=== PATIENT | female | born 1960 | race Caucasian/White ===

== ENCOUNTER 2016-12-23 08:44 | Day surgery (SDC) | payer OTHER, MEDICAID ==
--- NOTE | 2016-12-22 15:11 | HISTORY AND PHYSICAL E ---
History and Physical NAME: ANIBAL RAMIREZ : 1960 AGE: 56Y ADMITTED: 12/23/2016 ROOM: CHIEF COMPLAINT: 1. Hemorrhoid. 2. Blood in the stool. HISTORY: Patient presented for colon exam. Planned colonoscopy. Upper scope, 2008, shows no ulcers, esophagitis, gastritis, duodenitis. Colon was done in 2008 showing diverticulosis, polyps (rectum), and hemorrhoids. Now, she is for colon exam. REVIEW OF SYSTEMS: SOCIAL HISTORY: Smokes half pack daily. SURGICAL HISTORY: 1. Hysterectomy. 2. Back surgery. PHYSICAL EXAMINATION: VITAL SIGNS: Blood pressure 120/80, pulse 80, respirations 18. Temperature is 98. HEAD, EYES, EARS, NOSE, THROAT: Normal. NECK: Is supple. LUNGS: Are clear. ABDOMEN: Soft. NEUROLOGIC: Exam negative. MEDICATIONS: She takes: 1. Premarin. 2. Methadone. 3. Fentanyl patches. CONCLUSION: 1. POLYPS. 2. HEMORRHOIDS. 3. RECTAL BLEEDING. 4. HISTORY OF RECTAL POLYPS. PLAN: Colonoscopy, scheduled for 12/23/2016. DICTATING PHYSICIAN: DONATO CADE M.D. [id number] PHY#: [id number] ID: [id number] JOB#: [id number] ACCT: [id number] cc:DONATO CADE M.D. >
[~2016-12-23 08:44] MED LIST: EPINEPHRINE INJ 1 MG/10 ML DISP.SYRIN ONE; FLUMAZENIL INJ 0.5 MG/5 ML VIAL IV ONE; GLUCAGON,HUMAN RECOMB 1 MG INJ ONE; GLYCOPYRROLATE INJ 0.4 MG/2 ML VIAL ONE; LIDOCAINE 2% JELLY 30 ML TUBE ONE; NALOXONE HCL INJ/PF 0.4 MG/1 ML SDV ONE; ONDANSETRON HCL INJ/PF 4 MG/2 ML SDV ONE
[2016-12-23] MEDS: MIDAZOLAM 2 MG/2 ML INJ ONE ×2 (09:05→09:13)
[2016-12-23] MEDS: FENTANYL CITRATE INJ/PF 100 MCG/2 ML AMPUL ONE ×2 (09:07→09:15)
[2016-12-23 10:22] VITALS: BP 100/61
[2016-12-23 10:44] LABS: ABSOLUTE EOSINOPHILS # (AUTO) 0.1 10^3/uL (0.0-0.6); ABSOLUTE LYMPHOCYTES (AUTO) 3.2 10^3/uL (0.5-4.7); ABSOLUTE MONOCYTES (AUTO) 0.7 10^3/uL (0.1-1.4); ABSOLUTE NEUT (AUTO) 6.6 10^3/uL (1.7-8.2); BASOPHILS % (AUTO) 0.4 % (0-2); EOSINOPHILS % (AUTO) 0.9 % (0-6); HEMATOCRIT 39.8 % (36.0-47.0); HEMOGLOBIN 13.8 g/dL (12.0-15.5); HGB HCT DIFFERENCE 1.6; LYMPHOCYTES % (AUTO) 30.2 % (13-45); MEAN CORPUSCULAR HEMOGLOBIN 33.8 pg (27.0-33.4); MEAN CORPUSCULAR HGB CONC 34.6 g/dL (32.0-36.0); MEAN CORPUSCULAR VOLUME 98 fl (80-97); MONOCYTES % (AUTO) 6.7 % (3-13); RED BLOOD COUNT 4.08 10^6/uL (3.72-5.28); RED CELL DISTRIBUTION WIDTH 12.7 % (11.5-14.0); SEGMENTED NEUTROPHILS % (AUTO) 61.8 % (42-78); WHITE BLOOD COUNT 10.7 10^3/uL (4.0-10.5)
[2016-12-23 10:58] LABS: IRON 126.4 ug/dL (37-170)
--- NOTE | 2016-12-23 14:47 | DISCHARGE SUMMARY E ---
Discharge Summary NAME: ANIBAL RAMIREZ : 1960 AGE: 56Y ADMITTED: 12/23/2016 DISCHARGED: 12/23/2016 HOSPITAL COURSE: A 56-year-old female presented for colon screening. She does have history of allergy to grass, wheats, Darvocet. Colonoscopy today was successful to the cecum. There were diminutive rectal polyps, small to biopsy, and mild external hemorrhoids. DISCHARGE PLAN: Soft diet for 2 days. Consideration followup colonoscopy 5 years. DICTATING PHYSICIAN: DONATO CADE M.D. [id number] [id number] PHY#: [id number] ID: [id number] JOB#: [id number] ACCT: [id number] cc:Karen CAMPOS M.D. >
--- NOTE | 2016-12-23 14:47 | OPERATIVE REPORT E ---
Operative Report NAME: ANIBAL RAMIREZ : 1960 AGE: 56Y DATE OF SURGERY: 12/23/2016 ROOM: PREOPERATIVE DIAGNOSIS: Colon screening. POSTOPERATIVE DIAGNOSES: 1. External hemorrhoids, mild. 2. Diminutive rectal polyps, small to biopsy. PROCEDURE: Colonoscopy. SURGEON: DONATO CADE M.D. TISSUE REMOVED OR ALTERED: None. ANESTHESIA: Versed 4, fentanyl 100. DESCRIPTION OF PROCEDURE: Rectal exam: External hemorrhoids, mild. Rectum diminutive polyps 1-2 mm in size, small to biopsy. Sigmoid colon normal. Descending colon normal. Transverse colon normal. Ascending cecum normal. Scope withdrawn from cecum, ascending, transverse, descending, sigmoid all the way to the rectum. CONCLUSION: 1. Diminutive rectal polyps small to biopsy. 2. External hemorrhoids. PLAN: Consider followup colonoscopy 5 years. DICTATING PHYSICIAN: DONATO CADE M.D. [id number] [id number] PHY#: [id number] ID: [id number] JOB#: [id number] ACCT: [id number] cc:Karen CAMPOS M.D. >
== END 2016-12-23 11:00 | disposition home or self-care (01) ==
LOC: END 08:44
PROVIDERS: ATTEND Specialist
PROC: 0DJD8ZZ Inspection of Lower Intestinal Tract, Via Natural or Artificial Opening Endoscopic (ICD-10-PCS; principal; 2016-12-23 09:00)
DX: K92.1 Melena (principal); K64.4 Residual hemorrhoidal skin tags; D12.8 Benign neoplasm of rectum; F17.210 Nicotine dependence, cigarettes, uncomplicated; Z79.899 Other long term (current) drug therapy
CPT/HCPCS: 45378; 36415; 82607; 82728; 83540; 85025; J2250; J3010; J1610; J2405; J0171; J2310; J3490

== ENCOUNTER 2016-12-28 20:24 | Emergency (ER) | payer OTHER, MEDICAID ==
[2016-12-28 23:29] LABS: ABSOLUTE BASOPHILS # (AUTO) 0.1 10^3/uL (0.0-0.2); ABSOLUTE EOSINOPHILS # (AUTO) 0.1 10^3/uL (0.0-0.6); ABSOLUTE LYMPHOCYTES (AUTO) 5.6 10^3/uL (0.5-4.7); ABSOLUTE MONOCYTES (AUTO) 0.7 10^3/uL (0.1-1.4); ABSOLUTE NEUT (AUTO) 5.9 10^3/uL (1.7-8.2); BASOPHILS % (AUTO) 0.7 % (0-2); EOSINOPHILS % (AUTO) 0.9 % (0-6); HEMATOCRIT 41.9 % (36.0-47.0); HEMOGLOBIN 14.9 g/dL (12.0-15.5); HGB HCT DIFFERENCE 2.8; LYMPHOCYTES % (AUTO) 45.3 % (13-45); MEAN CORPUSCULAR HEMOGLOBIN 34.6 pg (27.0-33.4); MEAN CORPUSCULAR HGB CONC 35.5 g/dL (32.0-36.0); MEAN CORPUSCULAR VOLUME 97 fl (80-97); MONOCYTES % (AUTO) 5.6 % (3-13); RED CELL DISTRIBUTION WIDTH 12.8 % (11.5-14.0); SEGMENTED NEUTROPHILS % (AUTO) 47.5 % (42-78); WHITE BLOOD COUNT 12.5 10^3/uL (4.0-10.5)
[2016-12-28 23:38] LABS: APPEARANCE,URINE SLIGHTLY-CLOUDY; BILIRUBIN,URINE NEGATIVE (NEGATIVE); GLUCOSE, URINE NEGATIVE (NEGATIVE); KETONES,URINE NEGATIVE (NEGATIVE); LEUKOCYTE ESTERASE,URINE NEGATIVE (NEGATIVE); NITRITE,URINE NEGATIVE (NEGATIVE); PROTEIN,URINE NEGATIVE (NEGATIVE); URINE SPECIFIC GRAVITY 1.009; UROBILINOGEN,URINE NEGATIVE mg/dL (<2.0)
[2016-12-28 23:53] LABS: ALANINE AMINOTRANSFERASE 28 U/L (9-52); ALBUMIN 4.9 g/dL (3.5-5.0); ALKALINE PHOSPHATASE 90 U/L (38-126); ANION GAP 11 (5-19); ASPARTATE AMINO TRANSFERASE 21 U/L (14-36); BILIRUBIN,DIRECT 0.3 mg/dL (0.0-0.4); BILIRUBIN,TOTAL 0.6 mg/dL (0.2-1.3); BLOOD UREA NITROGEN 13 mg/dL (7-20); CALCIUM 9.9 mg/dL (8.4-10.2); CARBON DIOXIDE 27 mmol/L (22-30); CHLORIDE 105 mmol/L (98-107); CREATININE RESULT 0.83 mg/dL (0.52-1.25); GLUCOSE 93 mg/dL (75-110); POTASSIUM 4.3 mmol/L (3.6-5.0); TOTAL PROTEIN 8.2 g/dL (6.3-8.2)
[2016-12-29] MEDS ORDERED: ONDANSETRON 4 MG TAB.RAPDIS PO ONE (00:57)
--- NOTE | 2016-12-29 01:04 | ER Document Report ---
ED General - General Chief Complaint: Headache <24 hrs old Stated Complaint: VOMITING/HEADACHE Time Seen by Provider: 12/29/16 00:56 Notes: 56-year-old female presents with holocephalic headache gradual onset, he by resolved nausea and vomiting that she contracted while she was cleaning out a trailer full of animal poop and insects. She had no toxic exposures but they called the poison center were concerned about parvovirus and were told to come to the ED. Her side hurts after vomiting. She has no shortness of breath. She did not ingest any chemicals or feces. She does have a history of migraines and this feels similar. TRAVEL OUTSIDE OF THE [place] IN LAST 30 DAYS: No - Related Data Allergies/Adverse Reactions: propoxyphene napsylate [From Vivonet-N 100] Allergy (Mild, Verified 12/28/16 21 :12) Migraines grass, weeds, smoke Allergy (Uncoded 12/20/16 13:59) Past Medical History - General Information source: Patient - Social History Smoking Status: Current Every Day Smoker Chew tobacco use (# tins/day): No Frequency of alcohol use: None Drug Abuse: None Family History: Arthritis, CAD, CVA, DM, Hyperlipidemia, Hypertension, Malignancy - Past Medical History Cardiac Medical History: Denies: Hx Coronary Artery Disease, Hx Heart Attack, Hx Hypertension - LOW BLOOD PRESSURE Pulmonary Medical History: Reports: Hx Bronchitis Denies: Hx Asthma, Hx COPD, Hx Pneumonia, Hx Tuberculosis Neurological Medical History: Reports: Hx Migraine. Denies: Hx Cerebrovascular Accident, Hx Seizures Renal/ Medical History: Denies: Hx Peritoneal Dialysis Musculoskeltal Medical History: Reports Hx Arthritis, Reports Hx Musculoskeletal Deformity, Reports Hx Musculoskeletal Trauma Psychiatric Medical History: Reports: Hx Depression Traumatic Medical History: Reports: Hx Fractures - left arm right wrist and back , Hx Spine Fracture Past Surgical History: Reports: Hx Cholecystectomy, Hx Hysterectomy, Hx Orthopedic Surgery - left arm, right wrist, and back, Hx Tubal Ligation - Immunizations Immunizations up to date: Yes Hx Diphtheria, Pertussis, Tetanus Vaccination: Yes Review of Systems - Review of Systems Notes: REVIEW OF SYSTEMS GEN: Denies fever, chills, weight loss ENT: Denies sore throat, nasal discharge, ear pain EYES: Denies blurry vision, eye pain, discharge CV: Denies chest pain, palpitations, edema RESP: Denies cough, shortness of breath, wheezing GI: Denies abdominal pain, nausea, vomiting, diarrhea MSK: Denies joint pain/swelling, edema, SKIN: Denies rash, skin lesions LYMPH: Denies swollen glands/lymph nodes NEURO: Awake, denies focal weakness or numbness, dizziness PSYCH: Denies depression, suicidal or homicidal ideation PHYSICAL EXAMINATION General: No acute distress, well-nourished Head: Atraumatic, normocephalic ENT: Mouth normal, oropharynx moist, no exudates or tonsillar enlargement Eyes: Conjunctiva normal, pupils equal, lids normal Neck: No JVD, supple, no guarding CVS: Normal rate, regular rhythm, no murmurs Resp: No resp distress, equal and normal breath sounds bilaterally GI: Nondistended, soft, no tenderness to palpation, no rebound or guarding Ext: No deformities, no edema, normal range of motion in upper and lower ext Back: No CVA or midline TTP Skin: No rash, warm Lymphatic: No lymphadeopathy noted Neuro: Awake, alert. Face symmetric. Face symmetric no pronator drift. GCS 15. Physical Exam - Vital signs Vitals: Temp Pulse Resp BP Pulse Ox 98.4 F 90 16 127/88 H 97 12/28/16 21:12 12/28/16 21:12 12/28/16 21:12 12/28/16 21:12 12/28/16 21:12 Course - Re-evaluation Re-evalutation: 12/29/16 01:03 Patient presents with migraine-like headache and resolved vomiting without therapy in the setting of cleaning a house. No toxic chemical exposures not likely to be viral or other infectious disease. She looks well in the ED with no focal deficits and will receive Toradol Zofran to be discharged home in stable condition. I have discussed with the patient there likely diagnosis, aftercare plan, follow -up plans and my usual and customary return precautions. They verbalized understanding of this. - Vital Signs Vital signs: Temp Pulse Resp BP Pulse Ox 98.4 F 90 16 127/88 H 97 12/28/16 21:12 12/28/16 21:12 12/28/16 21:12 12/28/16 21:12 12/28/16 21:12 - Laboratory Result Diagrams: 12/28/16 23:15 12/28/16 23:15 Laboratory results interpreted by me: 12/28/16 12/28/16 23:13 23:15 WBC 12.5 H MCH 34.6 H Lymphocytes % 45.3 H Absolute Lymphocytes 5.6 H Urine Blood SMALL H Discharge - Discharge Clinical Impression: Acute non intractable tension-type headache Condition: Good Disposition: HOME, SELF-CARE Instructions: Headache ([facility])
[2016-12-29 01:40] VITALS: BP 97/57
== END 2016-12-29 01:41 | disposition home or self-care (01) ==
LOC: ER 20:24
DX: G44.209 Tension-type headache, unspecified, not intractable (principal); R11.2 Nausea with vomiting, unspecified; F17.200 Nicotine dependence, unspecified, uncomplicated; Z86.69 Personal history of other diseases of the nervous system and sense organs; Z88.5 Allergy status to narcotic agent; Z91.048 Other nonmedicinal substance allergy status
CPT/HCPCS: 36415; 80053; 81001; 85025; 99283

== ENCOUNTER 2017-01-27 09:47 | Day surgery (SDC) | payer OTHER, MEDICAID ==
--- NOTE | 2017-01-25 08:32 | HISTORY AND PHYSICAL E ---
History and Physical NAME: ANIBAL RAMIREZ : 1960 AGE: 56Y ADMITTED: 01/27/2017 ROOM: CHIEF COMPLAINT: Abdominal pain. HISTORY: Known to me since 1997 when I saw her for blood in the stool where she did have colonoscopy for blood in the stool. Her colonoscopy was done and showed hemorrhoids, no polyps. At this time the patient presents with abdominal pain. She is for upper endoscopy. Her primary is *------*. She did have another colonoscopy in 2008. Her colonoscopy in 2008 showed diverticulosis, small rectal polyps. At this time patient is for upper endoscopy. She was seen back in 2012 where she did have abdominal pain, and upper endoscopy showed gastroparesis and gastric retention. She does have diverticulosis. She did have upper scope back in upper scope shows gastric bezoar, esophagitis, a small polyp in the esophagus, small to biopsy. She did have another colonoscopy in 2014 showing diverticulosis, blood in the stool, diminutive rectosigmoid polyps. MEDICATIONS: 1. Methadone. 2. Premarin. 3. Fentanyl patches. PHYSICAL EXAMINATION: GENERAL: Pleasant, alert and oriented, in no acute distress. VITAL SIGNS: Blood pressure is 110/70, pulse 80, respirations 20, temp is 98. HEENT: Normal. NECK: Supple. CARDIOVASCULAR: Normal. LUNGS: Clear. ABDOMEN: Soft. NEUROLOGIC: Exam is negative. CONCLUSIONS: Abdominal pain. She was seen complaining of reflux, abdominal pain. PLAN: Upper scope. DICTATING PHYSICIAN: DONATO CADE M.D. 1209M 1153 Y#: [id number] ID: [id number] JOB#: [id number] ACCT: [id number] cc:DONATO CADE M.D. >
[~2017-01-27 09:47] MED LIST changes: +FENTANYL CITRATE INJ/PF 100 MCG/2 ML AMPUL ONE; -FLUMAZENIL INJ 0.5 MG/5 ML VIAL IV ONE; +FLUMAZENIL INJ 0.5 MG/5 ML VIAL ONE; -GLUCAGON,HUMAN RECOMB 1 MG INJ ONE; -LIDOCAINE 2% JELLY 30 ML TUBE ONE; +MIDAZOLAM 2 MG/2 ML INJ ONE
[2017-01-27] MEDS ORDERED: PROMETHAZINE HCL INJ 25 MG/1 ML VIAL IV PRN ×2 (10:29)
[2017-01-27] MEDS ORDERED: OXYCODONE-ACETAMINOPHEN 5-325 MG TABLET PO PRN ×2 (10:29)
[2017-01-27] MEDS ORDERED: MORPHINE SULFATE 10 MG/ML INJ IV PRN (10:29)
[2017-01-27] MEDS ORDERED: FENTANYL CITRATE INJ/PF 100 MCG/2 ML AMPUL IV PRN ×3 (10:29)
[2017-01-27] MEDS ORDERED: DIPHENHYDRAMINE HCL 50 MG/ML VIAL IV PRN (10:29)
[2017-01-27] MEDS ORDERED: MEPERIDINE HCL/PF INJ 25 MG/1 ML DISP.SYRIN IV PRN (10:29)
[2017-01-27 11:32] VITALS: BP 97/65
[2017-01-27 11:33] LABS: ABSOLUTE EOSINOPHILS # (AUTO) 0.1 10^3/uL (0.0-0.6); ABSOLUTE LYMPHOCYTES (AUTO) 4.3 10^3/uL (0.5-4.7); ABSOLUTE MONOCYTES (AUTO) 0.7 10^3/uL (0.1-1.4); ABSOLUTE NEUT (AUTO) 4.6 10^3/uL (1.7-8.2); BASOPHILS % (AUTO) 0.3 % (0-2); EOSINOPHILS % (AUTO) 1.3 % (0-6); HEMATOCRIT 38.3 % (36.0-47.0); HEMOGLOBIN 13.1 g/dL (12.0-15.5); LYMPHOCYTES % (AUTO) 43.5 % (13-45); MEAN CORPUSCULAR HEMOGLOBIN 33.9 pg (27.0-33.4); MEAN CORPUSCULAR HGB CONC 34.2 g/dL (32.0-36.0); MEAN CORPUSCULAR VOLUME 99 fl (80-97); MONOCYTES % (AUTO) 7.6 % (3-13); RED BLOOD COUNT 3.86 10^6/uL (3.72-5.28); RED CELL DISTRIBUTION WIDTH 12.7 % (11.5-14.0); SEGMENTED NEUTROPHILS % (AUTO) 47.3 % (42-78); WHITE BLOOD COUNT 9.8 10^3/uL (4.0-10.5)
--- NOTE | 2017-01-28 20:21 | DISCHARGE SUMMARY E ---
Discharge Summary NAME: ANIBAL RAMIREZ : 1960 AGE: 56Y ADMITTED: 01/27/2017 DISCHARGED: 01/27/2017 PROCEDURE: EGD and biopsy. HISTORY: Patient is 56, underwent upper scope for exacerbation of reflux. The finding was that of no ulcers, no malignancy, no hernia, mild esophagitis, mild erosive gastritis, and mild duodenitis. DISCHARGE PLAN: Awaiting biopsy results. Baseline CBC. Patient is to see us in the office in the next few days. DICTATING PHYSICIAN: DONATO CADE M.D. 1209M 1050 PHY#: [id number] ID: [id number] JOB#: [id number] ACCT: [id number] cc:EDGARDO COLLINS M.D., MAHMOUD M.D. >
--- NOTE | 2017-01-28 20:33 | OPERATIVE REPORT E ---
Operative Report NAME: ANIBAL RAMIREZ : 1960 AGE: 56Y DATE OF SURGERY: 01/27/2017 ROOM: PREOPERATIVE DIAGNOSIS: Exacerbation of reflux. POSTOPERATIVE DIAGNOSES: 1. No finding of hiatus hernia on today's endoscopy. 2. Mild esophagitis. 3. Mild gastritis. 4. Mild duodenitis. PROCEDURES: 1. Esophagoscopy. 2. Gastroscopy. 3. Duodenoscopy. SURGEON: DONATO CADE M.D. TISSUE REMOVED OR ALTERED: Gastric biopsy H. pylori. ANESTHESIA: Versed 2, fentanyl 50. ALLERGIES: 1. DARVOCET. 2. WEEDS, SMOKE, AND GRASS. PROCEDURE: Baby gastroscope passed under guided vision, no difficulties. Esophagoscopy junction at 33, mild esophagitis. No hernia was found. Gastroscopy: Mild erosions in the antrum. Erosive gastritis. No ulcers. Duodenoscopy: Duodenal bulb shows mild duodenitis. Descending duodenum mild duodenitis. No ulcers. No malignancy. PLAN: Hold aspirin, nonsteroidal. Awaiting biopsy results. Baseline CBC. DICTATING PHYSICIAN: DONATO CADE M.D. [id number] [id number] PHY#: [id number] ID: [id number] JOB#: [id number] ACCT: [id number] cc:EDGARDO COLLINS M.D., MAHMOUD M.D. >
== END 2017-01-27 11:50 | disposition home or self-care (01) ==
LOC: END 09:47
PROVIDERS: ATTEND Specialist
PROC: 0DB68ZX Excision of Stomach, Via Natural or Artificial Opening Endoscopic, Diagnostic (ICD-10-PCS; principal; 2017-01-27 10:00)
DX: K29.50 Unspecified chronic gastritis without bleeding (principal); B96.81 Helicobacter pylori [H. pylori] as the cause of diseases classified elsewhere; K21.0 Gastro-esophageal reflux disease with esophagitis; K29.80 Duodenitis without bleeding; Z79.899 Other long term (current) drug therapy; Z88.5 Allergy status to narcotic agent
CPT/HCPCS: 43239; 36415; 85025; 88342 ×2; 88305 ×2; J2250; J3010; J2405; J0171; J2310; J3490

== ENCOUNTER → 2017-07-27 | Outpatient (CLI) | payer OTHER, MEDICAID ==
--- NOTE | 2017-07-27 12:54 | RADIOLOGY REPORT (SQ) ---
EXAM DESCRIPTION: T SPINE AP/LAT COMPLETED DATE/TIME: 07/27/2017 11:24 am REASON FOR STUDY: RADICULOPATHY OF T AND L SPINE M54.15 RADICULOPATHY, THORACOLUMBAR REGION R20.2 PARESTHESIA OF SKIN COMPARISON: None. NUMBER OF VIEWS: Two views. TECHNIQUE: AP and lateral radiographic images acquired of the thoracic spine. LIMITATIONS: None. FINDINGS: MINERALIZATION: Normal. ALIGNMENT: Normal. No scoliosis. VERTEBRAE: No fracture or bone lesion. Maintained height, normal segmentation. DISCS: No significant loss of height or significant narrowing. No large osteophytes. HARDWARE: Hardware in the lower thoracic and upper lumbar spine. MEDIASTINUM AND SOFT TISSUES: Normal heart size and aortic contour. No soft tissue abnormality. VISUALIZED LUNG CARTY: Clear. OTHER: No other significant finding. IMPRESSION: NO SIGNIFICANT RADIOGRAPHIC FINDING IN THE THORACIC SPINE. TECHNICAL DOCUMENTATION: JOB ID: [id number] [employer]- All Rights Reserved Reading location - IP/workstation name: [email or web address]
--- NOTE | 2017-07-27 12:56 | RADIOLOGY REPORT (SQ) ---
EXAM DESCRIPTION: LUMBAR SPINE COMPLETE COMPLETED DATE/TIME: 07/27/2017 11:24 am REASON FOR STUDY: RADICULOPATHY OF T AND L SPINE M54.15 RADICULOPATHY, THORACOLUMBAR REGION R20.2 PARESTHESIA OF SKIN COMPARISON: 05/09/2013 and 09/22/2006. NUMBER OF VIEWS: Five views including obliques. TECHNIQUE: AP, lateral, oblique, and sacral radiographic images acquired of the lumbar spine. LIMITATIONS: None. FINDINGS: MINERALIZATION: Normal. SEGMENTATION: Normal. No transitional anatomy. ALIGNMENT: Normal. VERTEBRAE: Old mild compression deformity L1, unchanged. Remainder of the lumbar vertebrae are intac t. DISCS: Preserved height. No significant osteophytes or end plate irregularity. POSTERIOR ELEMENTS: Pedicles and facets are intact. No pars defect or posterior arch defects. HARDWARE: Stable posterior hardware at T12, L 1, and L 2. PARASPINAL SOFT TISSUES: Normal. PELVIS: Intact as visualized. No fractures or worrisome bone lesions. SI joints intact. OTHER: No other significant finding. IMPRESSION: STABLE CHRONIC FINDINGS. OLD MILD COMPRESSION DEFORMITY OF L1 AND POSTERIOR HARDWARE FR OM T12-L2. NO CHANGE. NO ACUTE FINDINGS. TECHNICAL DOCUMENTATION: JOB ID: [id number] [employer]- All Rights Reserved Reading location - IP/workstation name: [email or web address]
== END ==
LOC: OD 10:57
PROVIDERS: ATTEND Physician Assistant Medical
DX: M54.15 Radiculopathy, thoracolumbar region (principal); R20.2 Paresthesia of skin; S32.008G Other fracture of unspecified lumbar vertebra, subsequent encounter for fracture with delayed healing
CPT/HCPCS: 72070; 72110

== ENCOUNTER → 2017-09-07 | Outpatient (CLI) | payer OTHER, MEDICAID ==
--- NOTE | 2017-09-07 15:06 | RADIOLOGY REPORT (SQ) ---
EXAM DESCRIPTION: MRI THORACIC SPINE COMBO COMPLETED DATE/TIME: 09/07/2017 1:47 pm REASON FOR STUDY: RADICULOPATHY, THORACOLUMBAR REGION (M54.15) M54.15 RADICULOPATHY, THORACOLUMBAR REGION S32.008S OTHER FRACTURE OF UNSPECIFIED LUMBAR VERTEBRA, SEQU R20.2 PARESTHESIA OF SKIN COMPARISON: None. TECHNIQUE: Sagittal and Axial imaging includes T1, T2, STIR and gradient echo sequences. T1 post ga dolinium sequences. CONTRAST TYPE AND DOSE: 10 mL Multihance. RENAL FUNCTION: GFR > 60. LIMITATIONS: Motion. Metal artifact. FINDINGS: LOCALIZER: No worrisome findings. ALIGNMENT: Normal. VERTEBRAE: No evidence of acute compression fracture. BONE MARROW: Normal. No marrow replacement or reactive changes. HARDWARE: Posterior fusion T12-L1. CORD: Normal in size and signal intensity. SOFT TISSUES: No soft tissue masses. THORACIC DISCS T1-T12: No significant spinal stenosis or exit foraminal stenosis. LOWER CERVICAL: Incompletely imaged. No stenosis seen. UPPER LUMBAR: See separate report of the same date. ENHANCEMENT: No abnormal enhancement. OTHER: No other significant finding. IMPRESSION: No acute findings. TECHNICAL DOCUMENTATION: JOB ID: [id number] [employer]- All Rights Reserved Reading location - IP/workstation name: [email or web address]
--- NOTE | 2017-09-07 15:45 | RADIOLOGY REPORT (SQ) ---
EXAM DESCRIPTION: MRI LUMBAR SPINE COMBO COMPLETED DATE/TIME: 09/07/2017 1:47 pm REASON FOR STUDY: PARESTHESIA OF SKIN (R20.0), OTHER FRACTURE OF UNSPECIFIED LUMBAR VERTEBRA, M54.15 RADICULOPATHY, THORACOLUMBAR REGION S32.008S OTHER FRACTURE OF UNSPECIFIED LUMBAR VERTEBRA, SEQU R 20.2 PARESTHESIA OF SKIN COMPARISON: None. TECHNIQUE: Sagittal and Axial imaging includes T1, T1 post gadolinium, T2, STIR and gradient echo se quences. Coronal T2/HASTE imaging. CONTRAST TYPE AND DOSE: 10 mL Multihance. RENAL FUNCTION: GFR > 60. LIMITATIONS: Motion. Metal artifact. FINDINGS: VISUALIZED UPPER ABDOMEN: Limited evaluation. No acute or suspicious findings suggested. SEGMENTATION: No transitional anatomy. The lowest well-developed disc space is labeled L5-S1. ALIGNMENT: Anatomic. VERTEBRAE: Intact. No fractures. BONE MARROW: Normal. No marrow replacement or reactive changes. DISC SIGNAL: Desiccation multiple levels. POSTERIOR ELEMENTS: Posterior decompression T12-L1. HARDWARE: Posterior fusion T12-L 1, L1-2. CORD AND CONUS: Normal in size and signal intensity. Conus at the appropriate level. SOFT TISSUES: No aortic aneurysm seen. No bulky retroperitoneal adenopathy or mass. No paraspinal mas s or fluid. L1-L2: No significant spinal stenosis or exit foraminal stenosis. L2-L3: No significant spinal stenosis or exit foraminal stenosis. L3-L4: No significant spinal stenosis or exit foraminal stenosis. L4-L5: Disc bulge and facet arthropathy. No significant spinal stenosis or exit foraminal stenosis. L5-S1: Left paracentral annular fissure. Facet arthropathy. LOWER THORACIC: See separate report of the same date. SACRUM: Visualized upper sacrum intact. ENHANCEMENT: No abnormal enhancement. OTHER: No other significant findings. IMPRESSION: Facet arthropathy. Small annular fissure L5-S1. TECHNICAL DOCUMENTATION: JOB ID: [id number] All Rights Reserved Reading location - IP/workstation name: [email or web address]
== END ==
LOC: RAD 12:07
PROVIDERS: ATTEND Physician Assistant Medical
DX: S32.008S Other fracture of unspecified lumbar vertebra, sequela (principal); X58.XXXS Exposure to other specified factors, sequela; M54.15 Radiculopathy, thoracolumbar region; R20.2 Paresthesia of skin
CPT/HCPCS: 82565; 72157; 72158; A9577

== ENCOUNTER → 2018-02-14 | Outpatient (CLI) | payer MEDICAID ==
[2018-02-14 17:23] LABS: ABSOLUTE LYMPHOCYTES (AUTO) 1.5 10^3/uL (0.5-4.7); ABSOLUTE MONOCYTES (AUTO) 0.2 10^3/uL (0.1-1.4); ABSOLUTE NEUT (AUTO) 7.7 10^3/uL (1.7-8.2); BASOPHILS % (AUTO) 0.3 % (0-2); EOSINOPHILS % (AUTO) 0.2 % (0-6); HEMATOCRIT 35.7 % (36.0-47.0); HEMOGLOBIN 12.6 g/dL (12.0-15.5); LYMPHOCYTES % (AUTO) 15.6 % (13-45); MEAN CORPUSCULAR HEMOGLOBIN 34.4 pg (27.0-33.4); MEAN CORPUSCULAR HGB CONC 35.3 g/dL (32.0-36.0); MEAN CORPUSCULAR VOLUME 98 fl (80-97); MONOCYTES % (AUTO) 2.2 % (3-13); PLATELET COUNT 264 10^3/uL (150-450); RED BLOOD COUNT 3.66 10^6/uL (3.72-5.28); RED CELL DISTRIBUTION WIDTH 12.3 % (11.5-14.0); SEGMENTED NEUTROPHILS % (AUTO) 81.7 % (42-78); TOTAL CELLS COUNTED % (AUTO) 100 %; WHITE BLOOD COUNT 9.4 10^3/uL (4.0-10.5)
[2018-02-14 17:54] LABS: ALANINE AMINOTRANSFERASE 38 U/L (9-52); ALKALINE PHOSPHATASE 114 U/L (38-126); ANION GAP 10 (5-19); ASPARTATE AMINO TRANSFERASE 28 U/L (14-36); BILIRUBIN,DIRECT 0.3 mg/dL (0.0-0.4); BILIRUBIN,TOTAL 0.5 mg/dL (0.2-1.3); BLOOD UREA NITROGEN 14 mg/dL (7-20); CALCIUM 9.5 mg/dL (8.4-10.2); CARBON DIOXIDE 29 mmol/L (22-30); CHLORIDE 102 mmol/L (98-107); GLUCOSE 109 mg/dL (75-110); POTASSIUM 4.5 mmol/L (3.6-5.0); SODIUM 140.5 mmol/L (137-145)
== END ==
LOC: OD 16:37
PROVIDERS: ATTEND Physician Assistant
DX: I10 Essential (primary) hypertension (principal); Z11.2 Encounter for screening for other bacterial diseases
CPT/HCPCS: 36415; 80053; 85025